=== PATIENT | male | born 1950 | race African-American/Black ===

== ENCOUNTER 2024-07-15 04:52 | Inpatient (IN) | payer MEDICARE ==
[2024-07-15] VITALS (14 sets, daily range): BP systolic 97–112; BP diastolic 56–66; PULSE 90–110; RESP 20–25; TEMP 36.72516–36.7516; O2SAT 97–100
[~2024-07-15] VITALS: Ht 175.3 cm; Wt 75.0 kg
[2024-07-15 05:27] LABS: MEAN CORPUSCULAR HEMOGLOBIN 18.9 pg (28.0-32.0); MEAN CORPUSCULAR HGB CONC 25.9 g/dL (31.0-37.0); MEAN CORPUSCULAR VOLUME 72.8 fL (80.0-94.0); MEAN PLATELET VOLUME 9.7 fl (7.4-10.4); PLATELET 187 x1000/uL (130-400); RED BLOOD CELL COUNT 2.37 mill/uL (4.7-6.1); RED CELL DISTRIBUTION WIDTH 25.1 % (11.6-14.6); WHITE BLOOD COUNT 4.2 x1000/uL (4.5-11.0)
[2024-07-15 05:37] LABS: CHLORIDE 105 mEq/L (98-107); POTASSIUM 4.3 mEq/L (3.5-5.1); SODIUM 142 mEq/L (136-145)
[2024-07-15 05:39] LABS: CALCIUM 9.4 mg/dL (8.7-10.4)
[2024-07-15 05:43] LABS: CREATININE 1.7 mg/dL (0.6-1.3)
[2024-07-15 05:44] LABS: GLUCOSE 60 mg/dL (70-105); UREA NITROGEN BLOOD 27 mg/dL (9-23)
[2024-07-15 05:45] LABS: TROPONIN I HIGH SENSITIVITY 28 ng/L (3.0-53)
[2024-07-15 05:46] LABS: CREATINE KINASE 64 IU/L (46-171); DIFFERENTIAL COMMENT 1; HEMATOCRIT. 17.2 % (42.0-52.0); HEMOGLOBIN. 4.5 g/dL (14.0-18.0)
[2024-07-15 06:33] LABS: CARBON DIOXIDE < 10 mEq/L (21-32)
[2024-07-15 07:24] LABS: NUCLEATED RED BLOOD CELLS 2 /100 WBC; PLATELET ESTIMATE NORMAL
[2024-07-15] MEDS ORDERED: MAGNESIUM/ALUMINUM HYDROXIDE/SIMETHICONE 30ML UDC PO PRN (07:45)
[2024-07-15] MEDS ORDERED: GUAIFENESIN 200MG/10ML SUGAR FREE UDC PO PRN (07:45)
[2024-07-15] MEDS ORDERED: ONDANSETRON HCL 4MG/2ML INJ IV PRN (07:45)
[2024-07-15] MEDS ORDERED: CLONIDINE 0.1MG TABLET PO PRN (07:45)
[2024-07-15] MEDS: FUROSEMIDE 40MG/4ML VIAL IVP ONE (07:59)
[2024-07-15] MEDS: PANTOPRAZOLE SODIUM 40 MG/VIAL IV SCH (08:16)
[2024-07-15 08:30] LABS: IRON 20 ug/dL (65-175)
[2024-07-15 08:32] LABS: TROPONIN I HIGH SENSITIVITY 50 ng/L (3.0-53)
[2024-07-15 08:33] LABS: TOTAL IRON BINDING CAPACITY 343 ug/dl (250-425)
[2024-07-15 08:47] LABS: ALANINE AMINOTRANSFERASE 49 IU/L (10-49); ALBUMIN 3.6 g/dL (3.2-4.8); ASPARTATE AMINOTRANSFERASE 45 IU/L (<34); BILIRUBIN DIRECT 0.8 mg/dL (<=3.0); PHOSPHORUS 6.1 mg/dL (2.5-4.9)
[2024-07-15 08:48] LABS: BILIRUBIN TOTAL 1.5 mg/dL (0.1-1.0); PROTEIN TOTAL 7.1 g/dL (6.0-8.3)
[2024-07-15 08:50] LABS: LACTIC ACID 22.5 mmol/L (0.4-2.0)
[2024-07-15 08:51] LABS: FERRITIN 10 ng/mL (22-322); FOLIC ACID (FOLATE) SERUM > 20.00 ng/mL (>5.38); VITAMIN B12 SERUM 650 pg/mL (211-911)
[2024-07-15] MEDS: MULTIVITAMINS,THER W-MINERALS TABLET PO SCH (09:00)
[2024-07-15] MEDS ORDERED: DOCUSATE SODIUM 100MG CAPSULE PO PRN (09:00)
[2024-07-15] MEDS: SUCRALFATE 1G TABLET PO SCH (09:00)
[2024-07-15] MEDS: THIAMINE HCL 100MG TABLET PO SCH (09:00)
[2024-07-15] MEDS: SODIUM BICARBONATE 8.4% 50MEQ/50ML SYR IV NR ×2 (09:00→16:12)
[2024-07-15] MEDS: SODIUM CHLORIDE 0.9% 1,000 ML IV ONE (09:00)
[2024-07-15] MEDS: VANCOMYCIN 1G PREMIX 200 ML IV SCH (09:00)
[2024-07-15] MEDS: FOLIC ACID 1MG TABLET PO SCH (09:00)
[2024-07-15] MEDS: PIPERACILLIN/TAZO 3.375G/50ML 50 ML IV SCH ×2 (09:00→14:41)
[2024-07-15] MEDS: SODIUM BICARBONATE 8.4% 50MEQ/50ML SYR IV ONE (09:30)
[2024-07-15] MEDS: DEXTROSE 50% WATER 50ML SYRINGE IV PRN (09:56)
[2024-07-15 10:18] LABS: BG BASE EXCESS -22.8 mmol/L (-2.0-3.0); BG CARBOXYHEMOGLOBIN 2.2 % (0.5-1.5); BG DEOXYHEMOGLOBIN 0.3 % (0.0-5.0); BG FRACTION INSPIRED OXYGEN 100; BG METHEMOGLOBIN 0.3 % (0.5-1.5); BG OXYGEN SATURATION 99.7 % (94.0-98.0); BG OXYHEMOGLOBIN 97.2 % (94.0-98.0); BG PCO2 17.1 mmHg (35.0-48.0); BG PH 7.085 (7.350-7.450); BG PO2 275.3 mmHg (83.0-108.0); BG SAMPLE SITE RIGHT BRACHIAL; BG TOTAL HEMOGLOBIN 5.8 g/dL (13.5-17.5); BG VENT MODE MASK - NRB
[2024-07-15] MEDS: LORAZEPAM 2MG/ML INJ IV ONE (10:34)
[2024-07-15 10:35] LABS: INR 1.6; PARTIAL THROMBOPLASTIN TIME 22.9 sec (23.4-31.0); PROTHROMBIN TIME 17.2 sec (9.6-11.0)
[2024-07-15] MEDS: FERROUS SULFATE 325MG TABLET PO SCH (10:45)
[2024-07-15] MEDS: LORAZEPAM 2MG/ML INJ IV NR (11:27)
[2024-07-15] MEDS: SUCCINYLCHOLINE CHLORIDE 200MG/10ML IV ONE (11:59)
[2024-07-15] MEDS: ETOMIDATE 2MG/ML 10ML VIAL IV ONE (11:59)
[2024-07-15] MEDS ORDERED: MIDAZOLAM 100MG/100ML PMX 100 ML IV PRN (12:00)
[2024-07-15] MEDS ORDERED: FENTANYL CITRATE/PF 2,500 MCG in SODIUM CHLORIDE 0.9% 200 ML IV PRN (12:00)
[2024-07-15] MEDS ORDERED: FENTANYL CITRATE 2,500 MCG in SODIUM CHLORIDE 0.9% 200 ML IV PRN (12:15)
[2024-07-15 12:24] LABS: HEMATOCRIT 23.8 % (42.0-52.0)
[2024-07-15] MEDS: MIDAZOLAM 100MG/100ML PREMIX IV PRN (12:37)
[2024-07-15 12:43] LABS: HEMOGLOBIN 6.2 g/dL (14.0-18.0)
[2024-07-15] MEDS: MIDAZOLAM HCL 2 MG/2 ML VIAL IV ONE (12:46)
[2024-07-15] MEDS: MIDAZOLAM HCL 100 MG in DEXT 5% WATER 80 ML IV ONE (12:46)
[2024-07-15 14:19] LABS: BG BASE EXCESS -19.7 mmol/L (-2.0-3.0); BG CARBOXYHEMOGLOBIN 1.8 % (0.5-1.5); BG DEOXYHEMOGLOBIN 0.3 % (0.0-5.0); BG FRACTION INSPIRED OXYGEN 80; BG METHEMOGLOBIN 0.3 % (0.5-1.5); BG OXYGEN SATURATION 99.7 % (94.0-98.0); BG OXYHEMOGLOBIN 97.6 % (94.0-98.0); BG PCO2 25.2 mmHg (35.0-48.0); BG PH 7.118 (7.350-7.450); BG PO2 444.8 mmHg (83.0-108.0); BG SAMPLE SITE RIGHT RADIAL; BG TOTAL HEMOGLOBIN 6.9 g/dL (13.5-17.5); BG VENT MODE VENT - AC
[2024-07-15 16:34] LABS: CLARITY URINE CLEAR (CLEAR); COLOR URINE YELLOW (YELLOW); GLUCOSE URINE NEGATIVE (NEGATIVE); KETONES URINE TRACE (NEGATIVE); LEUKOCYTE ESTERASE URINE NEGATIVE (NEGATIVE); NITRITE URINE NEGATIVE (NEGATIVE); OCCULT BLOOD URINE 3+ (NEGATIVE); PROTEIN URINE 2+ (NEGATIVE)
[2024-07-15 16:37] LABS: HEMATOCRIT 28.2 % (42.0-52.0); HEMOGLOBIN 7.7 g/dL (14.0-18.0)
[2024-07-15 16:42] LABS: POTASSIUM 3.8 mEq/L (3.5-5.1)
[2024-07-15 16:43] LABS: CALCIUM 8.5 mg/dL (8.7-10.4)
[2024-07-15 16:48] LABS: CREATININE 1.9 mg/dL (0.6-1.3)
[2024-07-15 16:50] LABS: *AMPHETAMINES SCREEN URINE NEGATIVE (NEGATIVE); *BARBITURATES SCREEN URINE NEGATIVE (NEGATIVE); *BENZODIAZEPINES SCREEN URINE PRESUMPTIVE POSITIVE (NEGATIVE)
[2024-07-15 16:51] LABS: *COCAINE SCREEN URINE PRESUMPTIVE POSITIVE (NEGATIVE); CANNABINOID URINE SCREEN NEGATIVE (NEGATIVE); ECSTASY MDMA SCREEN URINE NEGATIVE (NEGATIVE); METHADONE URINE SCREEN NEGATIVE (NEGATIVE); OPIATES URINE SCREEN NEGATIVE (NEGATIVE); PHENCYCLIDINE URINE SCREEN NEGATIVE (NEGATIVE)
[2024-07-15 16:56] LABS: BACTERIA URINE TRACE; RBC URINE NONE SEEN /hpf (0-2); SQUAMOUS EPITHELIAL CELL URINE FEW /lpf (RARE/1+); WBC URINE 0-2 /hpf (0-2)
[2024-07-15] MEDS: NOREPINEPHRINE 8MG/250ML PMX 250 ML IV PRN (17:04)
[2024-07-15 17:21] LABS: BG BASE EXCESS -11.2 mmol/L (-2.0-3.0); BG CARBOXYHEMOGLOBIN 1.1 % (0.5-1.5); BG DEOXYHEMOGLOBIN 0.1 % (0.0-5.0); BG FRACTION INSPIRED OXYGEN 60; BG METHEMOGLOBIN 0.1 % (0.5-1.5); BG OXYGEN SATURATION 99.9 % (94.0-98.0); BG OXYHEMOGLOBIN 98.7 % (94.0-98.0); BG PCO2 28.7 mmHg (35.0-48.0); BG PH 7.307 (7.350-7.450); BG PO2 243.7 mmHg (83.0-108.0); BG SAMPLE SITE RIGHT RADIAL; BG TOTAL HEMOGLOBIN 7.2 g/dL (13.5-17.5); BG VENT MODE VENT - AC
[2024-07-15 21:04] LABS: HEMATOCRIT 23.3 % (42.0-52.0); HEMOGLOBIN 7.1 g/dL (14.0-18.0)
[2024-07-15 21:20] LABS: CREATINE KINASE MB FRACTION 18.1 ng/mL (0.5-3.6)
[2024-07-16] VITALS (108 sets, daily range): BP systolic 95–120; BP diastolic 51–72; PULSE 78–98; RESP 18–23; TEMP 36.16956–36.72516; O2SAT 88–100
[2024-07-16] MEDS ORDERED: MIDAZOLAM HCL 5 MG/5 ML VIAL IV PRN (00:15)
[2024-07-16 01:40] LABS: LACTIC ACID 5.9 mmol/L (0.4-2.0)
[2024-07-16 02:03] LABS: HEMOGLOBIN 7.8 g/dL (14.0-18.0)
[2024-07-16] MEDS: DEXT 5%/0.9% NACL 1,000 ML IV SCH (04:12)
[2024-07-16] MEDS: BLOOD SUGAR DIAGNOSTIC STRIP TEST SCH (04:28)
[2024-07-16 06:22] LABS: CHLORIDE 107 mEq/L (98-107); POTASSIUM 3.5 mEq/L (3.5-5.1); SODIUM 144 mEq/L (136-145)
[2024-07-16 06:23] LABS: CALCIUM 7.8 mg/dL (8.7-10.4); CARBON DIOXIDE 30 mEq/L (21-32)
[2024-07-16 06:28] LABS: CREATINE KINASE MB FRACTION 13.5 ng/mL (0.5-3.6); GLUCOSE 143 mg/dL (70-105); LACTIC ACID 2.8 mmol/L (0.4-2.0)
[2024-07-16 06:29] LABS: LDL CHOLESTEROL 44 mg/dL (5-100); TRIGLYCERIDE 47 mg/dL (0-150); UREA NITROGEN BLOOD 33 mg/dL (9-23)
[2024-07-16 06:30] LABS: ALANINE AMINOTRANSFERASE 642 IU/L (10-49); ASPARTATE AMINOTRANSFERASE > 1000 IU/L (<34); CHOLESTEROL 76 mg/dL (<200); CREATINE KINASE 910 IU/L (46-171)
[2024-07-16 06:31] LABS: BILIRUBIN DIRECT 1.4 mg/dL (<=3.0); BILIRUBIN TOTAL 2.7 mg/dL (0.1-1.0); HDL CHOLESTEROL 21 mg/dL (>55)
[2024-07-16 06:33] LABS: T4 FREE 0.96 ng/dL (0.89-1.76); THYROID STIMULATING HORMONE 0.69 uIU/mL (0.55-4.78)
[2024-07-16 06:37] LABS: TROPONIN I HIGH SENSITIVITY 2866 ng/L (3.0-53)
[2024-07-16] MEDS ORDERED: PROPOFOL 10MG/ML 100ML 100 ML IV PRN (08:00)
[2024-07-16 09:27] LABS: MEAN CORPUSCULAR HEMOGLOBIN 22.7 pg (28.0-32.0); MEAN CORPUSCULAR HGB CONC 31.6 g/dL (31.0-37.0); MEAN CORPUSCULAR VOLUME 71.9 fL (80.0-94.0); RED CELL DISTRIBUTION WIDTH 26.5 % (11.6-14.6); WHITE BLOOD COUNT 12.3 x1000/uL (4.5-11.0)
[2024-07-16 09:36] LABS: DIFFERENTIAL COMMENT 1
[2024-07-16 09:37] LABS: HEMOGLOBIN. 7.3 g/dL (14.0-18.0)
[2024-07-16 09:53] LABS: BG BASE EXCESS 3.7 mmol/L (-2.0-3.0); BG DEOXYHEMOGLOBIN 2.1 % (0.0-5.0); BG FRACTION INSPIRED OXYGEN 30; BG HCO3 ACT 26.5 mmol/L (21.0-28.0); BG METHEMOGLOBIN 0.3 % (0.5-1.5); BG OXYGEN SATURATION 97.9 % (94.0-98.0); BG OXYHEMOGLOBIN 96.6 % (94.0-98.0); BG PCO2 32.3 mmHg (35.0-48.0); BG PH 7.532 (7.350-7.450); BG PO2 104.1 mmHg (83.0-108.0); BG SAMPLE SITE RIGHT BRACHIAL; BG TOTAL HEMOGLOBIN 7.8 g/dL (13.5-17.5); BG VENT MODE VENT - AC
[2024-07-16] MEDS ORDERED: POTASSIUM CHLORIDE 40 MEQ in DEXT 5% WATER 230 ML IV ONE (10:00)
[2024-07-16] MEDS: KCL 20MEQ/100ML X 2 FOR TOTAL KCL 40MEQ/200ML IV SCH (11:39)
[2024-07-16 12:17] LABS: PHOSPHORUS 3.3 mg/dL (2.5-4.9)
[2024-07-16] MEDS: IPRATROPIUM/ALBUTEROL 0.5-3(2.5)MG/3ML NEB HHN PRN (12:26)
[2024-07-16 13:08] LABS: TROPONIN I HIGH SENSITIVITY 2341 ng/L (3.0-53)
[2024-07-16 15:48] LABS: HEMOGLOBIN 7.8 g/dL (14.0-18.0)
[2024-07-16 16:02] LABS: ANISOCYTOSIS 4+; MICROCYTOSIS 2+; NUCLEATED RED BLOOD CELLS 1 /100 WBC; TARGET CELLS 1+
[2024-07-16 16:04] LABS: GIANT PLATELETS FEW; MEAN PLATELET VOLUME 10.2 fl (7.4-10.4); PLATELET 90 x1000/uL (130-400); PLATELET ESTIMATE DECREASED
[2024-07-16 19:04] LABS: TROPONIN I HIGH SENSITIVITY 1507 ng/L (3.0-53)
[2024-07-17] VITALS (107 sets, daily range): BP systolic 89–158; BP diastolic 45–111; PULSE 77–97; RESP 15–25; TEMP 36.50292–37.00296; O2SAT 97–100
[2024-07-17 02:08] LABS: CHLORIDE 108 mEq/L (98-107); POTASSIUM 3.3 mEq/L (3.5-5.1); SODIUM 143 mEq/L (136-145)
[2024-07-17 02:09] LABS: CALCIUM 7.6 mg/dL (8.7-10.4); CARBON DIOXIDE 30 mEq/L (21-32)
[2024-07-17 02:14] LABS: CREATININE 1.7 mg/dL (0.6-1.3); GLUCOSE 125 mg/dL (70-105); UREA NITROGEN BLOOD 25 mg/dL (9-23)
[2024-07-17 02:16] LABS: ALANINE AMINOTRANSFERASE 507 IU/L (10-49); ALBUMIN 2.6 g/dL (3.2-4.8); ASPARTATE AMINOTRANSFERASE 403 IU/L (<34); PHOSPHORUS 3.3 mg/dL (2.5-4.9); PROTEIN TOTAL 5.5 g/dL (6.0-8.3)
[2024-07-17 05:15] LABS: BASOPHILS % 0.1 % (0.0-2.0); EOSINOPHILS % 0.1 % (0.0-5.0); HEMATOCRIT. 23.2 % (42.0-52.0); HEMOGLOBIN. 7.3 g/dL (14.0-18.0); MEAN CORPUSCULAR HEMOGLOBIN 23.1 pg (28.0-32.0); MEAN CORPUSCULAR HGB CONC 31.5 g/dL (31.0-37.0); MEAN CORPUSCULAR VOLUME 73.6 fL (80.0-94.0); MONOCYTES % 3.5 % (2.0-8.0); NEUTROPHILS % 88.3 % (40.0-76.0); PLATELET 71 x1000/uL (130-400); RED BLOOD CELL COUNT 3.16 mill/uL (4.7-6.1); RED CELL DISTRIBUTION WIDTH 26.6 % (11.6-14.6); WHITE BLOOD COUNT 10.7 x1000/uL (4.5-11.0)
[2024-07-17] MEDS ORDERED: KCL 10MEQ/50ML PREMIX 50 ML IV PRN (06:15)
[2024-07-17 06:19] LABS: DIFFERENTIAL COMMENT 1
[2024-07-17 08:46] LABS: CHLORIDE 108 mEq/L (98-107); POTASSIUM 3.3 mEq/L (3.5-5.1); SODIUM 144 mEq/L (136-145)
[2024-07-17 08:47] LABS: CARBON DIOXIDE 28 mEq/L (21-32)
[2024-07-17 08:48] LABS: CALCIUM 7.9 mg/dL (8.7-10.4)
[2024-07-17 08:52] LABS: CREATININE 1.5 mg/dL (0.6-1.3); GLUCOSE 136 mg/dL (70-105); TRIGLYCERIDE 57 mg/dL (0-150)
[2024-07-17 08:53] LABS: UREA NITROGEN BLOOD 22 mg/dL (9-23)
[2024-07-17 08:54] LABS: ALANINE AMINOTRANSFERASE 480 IU/L (10-49); ALBUMIN 2.7 g/dL (3.2-4.8); ASPARTATE AMINOTRANSFERASE 309 IU/L (<34)
[2024-07-17 08:55] LABS: PROTEIN TOTAL 5.8 g/dL (6.0-8.3)
[2024-07-17 09:11] LABS: BG CARBOXYHEMOGLOBIN 1.4 % (0.5-1.5); BG FRACTION INSPIRED OXYGEN 30; BG HCO3 ACT 27.3 mmol/L (21.0-28.0); BG METHEMOGLOBIN 0.3 % (0.5-1.5); BG OXYHEMOGLOBIN 96.3 % (94.0-98.0); BG PCO2 35.4 mmHg (35.0-48.0); BG PH 7.505 (7.350-7.450); BG SAMPLE SITE RIGHT BRACHIAL; BG TOTAL HEMOGLOBIN 7.4 g/dL (13.5-17.5); BG VENT MODE VENT - AC
[2024-07-17] MEDS: KCL 10MEQ/50ML PREMIX 50 ML IV PRN (09:47)
[2024-07-17 12:13] LABS: HEMATOCRIT 22.2 % (42.0-52.0)
[2024-07-17 13:35] LABS: PHOSPHORUS 2.6 mg/dL (2.5-4.9)
[2024-07-17 18:39] LABS: HEMATOCRIT 26.1 % (42.0-52.0)
[2024-07-17 19:00] LABS: CREATINE KINASE MB FRACTION 5.5 ng/mL (0.5-3.6)
[2024-07-17] MEDS: ALBUMIN HUMAN 25GM/500ML (5%) IV NR (22:53)
[2024-07-17] MEDS: FUROSEMIDE 20MG/2ML VIAL IVP NR (23:36)
[2024-07-17] MEDS: ACETAZOLAMIDE SODIUM 500MG/VIAL IV NR (23:38)
[2024-07-18] VITALS (111 sets, daily range): BP systolic 73–129; BP diastolic 46–90; PULSE 64–121; RESP 17–34; TEMP 36.16956–37.2252; O2SAT 68–100
[2024-07-18 06:09] LABS: CHLORIDE 112 mEq/L (98-107); POTASSIUM 3.5 mEq/L (3.5-5.1); SODIUM 144 mEq/L (136-145)
[2024-07-18 06:12] LABS: CALCIUM 8.1 mg/dL (8.7-10.4); CARBON DIOXIDE 26 mEq/L (21-32)
[2024-07-18 06:17] LABS: CREATININE 1.3 mg/dL (0.6-1.3); GLUCOSE 106 mg/dL (70-105); UREA NITROGEN BLOOD 15 mg/dL (9-23)
[2024-07-18 06:19] LABS: ALANINE AMINOTRANSFERASE 311 IU/L (10-49); ALBUMIN 2.9 g/dL (3.2-4.8); ASPARTATE AMINOTRANSFERASE 123 IU/L (<34); PHOSPHORUS 1.8 mg/dL (2.5-4.9)
[2024-07-18 06:20] LABS: BILIRUBIN TOTAL 2.7 mg/dL (0.1-1.0); PROTEIN TOTAL 5.8 g/dL (6.0-8.3)
[2024-07-18 06:51] LABS: BASOPHILS % 0.1 % (0.0-2.0); EOSINOPHILS % 0.5 % (0.0-5.0); HEMATOCRIT. 28.7 % (42.0-52.0); HEMOGLOBIN. 8.5 g/dL (14.0-18.0); LYMPHOCYTES % 12.9 % (20.0-50.0); MEAN CORPUSCULAR HEMOGLOBIN 23.1 pg (28.0-32.0); MEAN CORPUSCULAR HGB CONC 29.6 g/dL (31.0-37.0); MEAN CORPUSCULAR VOLUME 78.2 fL (80.0-94.0); MEAN PLATELET VOLUME 10.6 fl (7.4-10.4); MONOCYTES % 4.1 % (2.0-8.0); NEUTROPHILS % 82.4 % (40.0-76.0); PLATELET 68 x1000/uL (130-400); RED BLOOD CELL COUNT 3.67 mill/uL (4.7-6.1); RED CELL DISTRIBUTION WIDTH 26.4 % (11.6-14.6); WHITE BLOOD COUNT 8.3 x1000/uL (4.5-11.0)
[2024-07-18 06:57] LABS: DIFFERENTIAL COMMENT 1
[2024-07-18] MEDS: DEXMEDETOMIDINE 400 MCG/100 ML 100 ML IV PRN (11:09)
[2024-07-18 12:15] LABS: HEMATOCRIT 27.6 % (42.0-52.0); HEMOGLOBIN 8.2 g/dL (14.0-18.0)
[2024-07-18 12:59] LABS: BG BASE EXCESS 1.4 mmol/L (-2.0-3.0); BG CARBOXYHEMOGLOBIN 0.8 % (0.5-1.5); BG DEOXYHEMOGLOBIN 7.7 % (0.0-5.0); BG FRACTION INSPIRED OXYGEN 30; BG HCO3 ACT 24.8 mmol/L (21.0-28.0); BG METHEMOGLOBIN 0.3 % (0.5-1.5); BG OXYGEN SATURATION 92.2 % (94.0-98.0); BG OXYHEMOGLOBIN 91.2 % (94.0-98.0); BG PH 7.481 (7.350-7.450); BG PO2 61.9 mmHg (83.0-108.0); BG SAMPLE SITE RIGHT RADIAL; BG TOTAL HEMOGLOBIN 8.5 g/dL (13.5-17.5); BG VENT MODE VENT - SIMV
[2024-07-18] MEDS: SODIUM PHOSPHATE 30 MMOL in DEXT 5% WATER 490 ML IV ONE (13:19)
[2024-07-18] MEDS: MAGNESIUM 2 G PREMIX 50 ML IV NR (19:01)
[2024-07-19] VITALS (90 sets, daily range): BP systolic 75–129; BP diastolic 45–79; PULSE 63–94; RESP 16–27; TEMP 36.50292–37.00296; O2SAT 92–100
[2024-07-19 05:01] LABS: BASOPHILS % 0.2 % (0.0-2.0); EOSINOPHILS % 0.7 % (0.0-5.0); HEMATOCRIT. 28.5 % (42.0-52.0); HEMOGLOBIN. 8.7 g/dL (14.0-18.0); LYMPHOCYTES % 14.8 % (20.0-50.0); MEAN CORPUSCULAR HEMOGLOBIN 23.5 pg (28.0-32.0); MEAN CORPUSCULAR HGB CONC 30.5 g/dL (31.0-37.0); MEAN CORPUSCULAR VOLUME 77.1 fL (80.0-94.0); MONOCYTES % 6.4 % (2.0-8.0); NEUTROPHILS % 77.9 % (40.0-76.0); RED BLOOD CELL COUNT 3.69 mill/uL (4.7-6.1); RED CELL DISTRIBUTION WIDTH 26.5 % (11.6-14.6); WHITE BLOOD COUNT 5.9 x1000/uL (4.5-11.0)
[2024-07-19 05:05] LABS: CHLORIDE 112 mEq/L (98-107); POTASSIUM 3.5 mEq/L (3.5-5.1); SODIUM 142 mEq/L (136-145)
[2024-07-19 05:09] LABS: CARBON DIOXIDE 24 mEq/L (21-32)
[2024-07-19 05:14] LABS: ALBUMIN 2.8 g/dL (3.2-4.8); CREATININE 1.1 mg/dL (0.6-1.3)
[2024-07-19 05:15] LABS: ALANINE AMINOTRANSFERASE 206 IU/L (10-49); ASPARTATE AMINOTRANSFERASE 64 IU/L (<34); GLUCOSE 188 mg/dL (70-105); UREA NITROGEN BLOOD 14 mg/dL (9-23)
[2024-07-19 05:17] LABS: BILIRUBIN TOTAL 1.9 mg/dL (0.1-1.0); PHOSPHORUS 2.3 mg/dL (2.5-4.9); PROTEIN TOTAL 5.7 g/dL (6.0-8.3)
[2024-07-19 05:39] LABS: HEPATITIS B SURFACE ANTIGEN NEGATIVE (Negative)
[2024-07-19 05:59] LABS: HEPATITIS A AB IGM REACTIVE (Negative)
[2024-07-19 06:00] LABS: HEPATITIS B CORE AB IGM NEGATIVE (Negative); HEPATITIS C AB NON REACTIVE (Neg) (Negative)
[2024-07-19 06:46] LABS: DIFFERENTIAL COMMENT 1
[2024-07-19 07:48] LABS: PLATELET 66 x1000/uL (130-400)
[2024-07-19 08:57] LABS: BG BASE EXCESS -2.5 mmol/L (-2.0-3.0); BG CARBOXYHEMOGLOBIN 0.9 % (0.5-1.5); BG DEOXYHEMOGLOBIN 1.4 % (0.0-5.0); BG FRACTION INSPIRED OXYGEN 30; BG HCO3 ACT 21.2 mmol/L (21.0-28.0); BG METHEMOGLOBIN 0.3 % (0.5-1.5); BG OXYGEN SATURATION 98.6 % (94.0-98.0); BG OXYHEMOGLOBIN 97.4 % (94.0-98.0); BG PCO2 32.5 mmHg (35.0-48.0); BG PH 7.432 (7.350-7.450); BG PO2 112.6 mmHg (83.0-108.0); BG SAMPLE SITE RIGHT RADIAL; BG TOTAL HEMOGLOBIN 9.5 g/dL (13.5-17.5); BG TOTAL RESPIRATORY RATE 26 b/min; BG VENT MODE VENT - SIMV
[2024-07-19] MEDS: LIDOCAINE HCL 1% 10 MG/ML 10ML VIAL ONE (09:15)
[2024-07-19] MEDS: KCL 10MEQ/50ML PREMIX 50 ML IV PRN (09:56)
[2024-07-19 12:51] LABS: HEMATOCRIT 29.2 % (42.0-52.0); HEMOGLOBIN 8.8 g/dL (14.0-18.0)
[2024-07-19 13:06] LABS: BG BASE EXCESS -1.7 mmol/L (-2.0-3.0); BG CARBOXYHEMOGLOBIN 0.9 % (0.5-1.5); BG DEOXYHEMOGLOBIN 3.6 % (0.0-5.0); BG FRACTION INSPIRED OXYGEN 30; BG HCO3 ACT 22.4 mmol/L (21.0-28.0); BG METHEMOGLOBIN 0.3 % (0.5-1.5); BG OXYGEN SATURATION 96.4 % (94.0-98.0); BG OXYHEMOGLOBIN 95.2 % (94.0-98.0); BG PCO2 35.1 mmHg (35.0-48.0); BG PH 7.422 (7.350-7.450); BG PO2 82.7 mmHg (83.0-108.0); BG SAMPLE SITE RIGHT RADIAL; BG TOTAL HEMOGLOBIN 9.4 g/dL (13.5-17.5); BG VENT MODE VENT - CPAP
[2024-07-19] MEDS: POTASSIUM PHOSPHATE 15 MMOL in DEXT 5% WATER 245 ML IV NR (15:01)
[2024-07-19] MEDS: IPRATROPIUM BROMIDE (0.02%) 0.5MG/2.5ML NEB HHN SCH (15:33)
[2024-07-19] MEDS: GLYCOPYRROLATE 0.2 MG/ML 2ML VIAL IV NR (16:47)
[2024-07-20] VITALS (99 sets, daily range): BP systolic 93–137; BP diastolic 48–93; PULSE 80–115; RESP 13–32; TEMP 36.3918–36.89184; O2SAT 99–100
[2024-07-20 06:44] LABS: CARBON DIOXIDE 26 mEq/L (21-32); CHLORIDE 113 mEq/L (98-107); POTASSIUM 3.5 mEq/L (3.5-5.1); SODIUM 142 mEq/L (136-145)
[2024-07-20 06:45] LABS: CALCIUM 7.8 mg/dL (8.7-10.4)
[2024-07-20 06:50] LABS: GLUCOSE 127 mg/dL (70-105); UREA NITROGEN BLOOD 14 mg/dL (9-23)
[2024-07-20 06:51] LABS: ALANINE AMINOTRANSFERASE 129 IU/L (10-49)
[2024-07-20 06:52] LABS: ALBUMIN 2.7 g/dL (3.2-4.8); ASPARTATE AMINOTRANSFERASE 27 IU/L (<34); BILIRUBIN TOTAL 1.7 mg/dL (0.1-1.0); PHOSPHORUS 1.7 mg/dL (2.5-4.9); PROTEIN TOTAL 5.3 g/dL (6.0-8.3)
[2024-07-20] MEDS: ACETYLCYSTEINE 200MG/ML 20% VIAL 4ML INH SCH (08:06)
[2024-07-20] MEDS: KCL 10MEQ/50ML PREMIX 50 ML IV PRN (08:13)
[2024-07-20] MEDS: MIDODRINE HCL 5MG TABLET PO SCH (08:13)
[2024-07-20] MEDS: POTASSIUM PHOSPHATE 30 MMOL in DEXT 5% WATER 490 ML IV SCH (09:12)
[2024-07-20 10:32] LABS: BG BASE EXCESS -2.6 mmol/L (-2.0-3.0); BG CARBOXYHEMOGLOBIN 1.1 % (0.5-1.5); BG DEOXYHEMOGLOBIN 1.3 % (0.0-5.0); BG FRACTION INSPIRED OXYGEN 45; BG HCO3 ACT 20.9 mmol/L (21.0-28.0); BG METHEMOGLOBIN 0.3 % (0.5-1.5); BG OXYGEN SATURATION 98.7 % (94.0-98.0); BG OXYHEMOGLOBIN 97.3 % (94.0-98.0); BG PH 7.447 (7.350-7.450); BG PO2 115.8 mmHg (83.0-108.0); BG SAMPLE SITE RIGHT RADIAL; BG TOTAL HEMOGLOBIN 8.8 g/dL (13.5-17.5); BG VENT MODE HIGH FLOW
[2024-07-20 12:52] LABS: HEMATOCRIT 27.8 % (42.0-52.0); HEMOGLOBIN 8.3 g/dL (14.0-18.0)
[2024-07-21] VITALS (69 sets, daily range): BP systolic 100–144; BP diastolic 49–103; PULSE 80–121; RESP 14–24; TEMP 36.3918–37.2252; O2SAT 97–100
[2024-07-21] MEDS: MIDODRINE HCL 5MG TABLET PO SCH (00:47)
[2024-07-21 05:45] LABS: BASOPHILS % 0.3 % (0.0-2.0); EOSINOPHILS % 0.7 % (0.0-5.0); HEMOGLOBIN. 8.9 g/dL (14.0-18.0); MEAN CORPUSCULAR HEMOGLOBIN 24.2 pg (28.0-32.0); MEAN CORPUSCULAR HGB CONC 30.7 g/dL (31.0-37.0); MEAN CORPUSCULAR VOLUME 78.8 fL (80.0-94.0); MONOCYTES % 6.3 % (2.0-8.0); NEUTROPHILS % 80.7 % (40.0-76.0); RED BLOOD CELL COUNT 3.68 mill/uL (4.7-6.1); RED CELL DISTRIBUTION WIDTH 27.3 % (11.6-14.6); WHITE BLOOD COUNT 6.6 x1000/uL (4.5-11.0)
[2024-07-21 05:56] LABS: CHLORIDE 113 mEq/L (98-107); POTASSIUM 4.1 mEq/L (3.5-5.1); SODIUM 141 mEq/L (136-145)
[2024-07-21 05:57] LABS: CARBON DIOXIDE 22 mEq/L (21-32)
[2024-07-21 05:58] LABS: CALCIUM 7.9 mg/dL (8.7-10.4)
[2024-07-21 06:03] LABS: CREATININE 0.9 mg/dL (0.6-1.3); GLUCOSE 172 mg/dL (70-105); UREA NITROGEN BLOOD 12 mg/dL (9-23)
[2024-07-21 06:04] LABS: ALANINE AMINOTRANSFERASE 108 IU/L (10-49); ALBUMIN 2.7 g/dL (3.2-4.8); ASPARTATE AMINOTRANSFERASE 26 IU/L (<34)
[2024-07-21 06:05] LABS: BILIRUBIN TOTAL 1.2 mg/dL (0.1-1.0); PROTEIN TOTAL 5.7 g/dL (6.0-8.3)
[2024-07-21 06:48] LABS: DIFFERENTIAL COMMENT 1
[2024-07-21 07:41] LABS: MEAN PLATELET VOLUME 10.9 fl (7.4-10.4); PLATELET 68 x1000/uL (130-400)
[2024-07-21] MEDS: PIPERACILLIN/TAZO 3.375G/50ML 50 ML IV SCH (13:33)
[2024-07-22] VITALS (11 sets, daily range): BP systolic 109–146; BP diastolic 61–86; PULSE 60–110; RESP 16–22; TEMP 36.44736–37.05852; O2SAT 96–100
[2024-07-22 07:30] LABS: CHLORIDE 112 mEq/L (98-107); POTASSIUM 3.9 mEq/L (3.5-5.1); SODIUM 141 mEq/L (136-145)
[2024-07-22 07:31] LABS: CALCIUM 8.1 mg/dL (8.7-10.4); CARBON DIOXIDE 25 mEq/L (21-32)
[2024-07-22 07:36] LABS: CREATININE 0.8 mg/dL (0.6-1.3); GLUCOSE 168 mg/dL (70-105); UREA NITROGEN BLOOD 11 mg/dL (9-23)
[2024-07-22 07:38] LABS: ALANINE AMINOTRANSFERASE 75 IU/L (10-49); ALBUMIN 2.6 g/dL (3.2-4.8); AMMONIA 19 uMol/L (<32); ASPARTATE AMINOTRANSFERASE 19 IU/L (<34); BILIRUBIN TOTAL 1.3 mg/dL (0.1-1.0); PROTEIN TOTAL 5.6 g/dL (6.0-8.3)
[2024-07-22 07:46] LABS: BASOPHILS % 0.2 % (0.0-2.0); EOSINOPHILS % 1.1 % (0.0-5.0); HEMOGLOBIN. 9.1 g/dL (14.0-18.0); LYMPHOCYTES % 10.9 % (20.0-50.0); MEAN CORPUSCULAR HEMOGLOBIN 23.6 pg (28.0-32.0); MEAN CORPUSCULAR HGB CONC 30.3 g/dL (31.0-37.0); MEAN CORPUSCULAR VOLUME 77.8 fL (80.0-94.0); MEAN PLATELET VOLUME 9.6 fl (7.4-10.4); MONOCYTES % 8.3 % (2.0-8.0); NEUTROPHILS % 79.5 % (40.0-76.0); PLATELET 98 x1000/uL (130-400); RED BLOOD CELL COUNT 3.85 mill/uL (4.7-6.1); RED CELL DISTRIBUTION WIDTH 27.3 % (11.6-14.6); WHITE BLOOD COUNT 6.2 x1000/uL (4.5-11.0)
[2024-07-22 08:22] LABS: DIFFERENTIAL COMMENT 1
[2024-07-22 09:55] LABS: PHOSPHORUS 1.7 mg/dL (2.5-4.9)
[2024-07-22] MEDS: MIDODRINE HCL 5MG TABLET PO SCH (15:01)
[2024-07-22] MEDS: FAMOTIDINE 20MG TABLET PO SCH (22:11)
[2024-07-23] VITALS (13 sets, daily range): BP systolic 105–157; BP diastolic 52–108; PULSE 95–120; RESP 13–24; TEMP 36.44736–37.11408; O2SAT 97–100
[2024-07-23] MEDS: POTASSIUM PHOSPHATE 30 MMOL in SODIUM CHLORIDE 0.9% 490 ML IV ONE (09:18)
[2024-07-23] MEDS: METOPROLOL SUCCINATE 50MG ER TABLET PO SCH (09:45)
[2024-07-23] MEDS ORDERED: MAGNESIUM HYDROXIDE 400MG/5ML 30ML UDC PO PRN (11:15)
[2024-07-23] MEDS: POLYETHYLENE GLYCOL 3350 (17GM) 1 DOSE PACK PO SCH (21:00)
[2024-07-24] VITALS (11 sets, daily range): BP systolic 112–155; BP diastolic 75–125; PULSE 106–118; RESP 16–24; TEMP 36.22512–36.55848; O2SAT 98–100
[2024-07-24] MEDS: LOSARTAN 25 MG TABLET PO SCH (09:10)
[2024-07-24] MEDS: FUROSEMIDE 40MG/4ML VIAL IVP SCH (10:30)
[2024-07-24] MEDS: METOPROLOL TARTRATE 25MG TABLET PO SCH (11:41)
[2024-07-24] MEDS ORDERED: LOSARTAN 25 MG TABLET PO SCH (13:00)
[2024-07-24] MEDS: LORAZEPAM 2MG/ML INJ IV NR (21:30)
[2024-07-25] VITALS: BP 122/65; PULSE 95; RESP 16; TEMP 36.55848
[2024-07-25 04:00] VITALS: BP 142/49; PULSE 103; RESP 17; TEMP 36.72516
[2024-07-25] MEDS ORDERED: FUROSEMIDE 20MG/2ML VIAL IVP SCH (09:00)
[2024-07-25 10:48] LABS: HEMOGLOBIN 9.3 g/dL (14.0-18.0); MEAN CORPUSCULAR HEMOGLOBIN 23.9 pg (28.0-32.0); MEAN CORPUSCULAR HGB CONC 30.1 g/dL (31.0-37.0); MEAN CORPUSCULAR VOLUME 79.4 fL (80.0-94.0); PLATELET 198 x1000/uL (130-400); RED CELL DISTRIBUTION WIDTH 27.5 % (11.6-14.6); WHITE BLOOD COUNT 6.7 x1000/uL (4.5-11.0)
[2024-07-25 10:50] LABS: CARBON DIOXIDE 27 mEq/L (21-32); CHLORIDE 112 mEq/L (98-107); POTASSIUM 3.4 mEq/L (3.5-5.1); SODIUM 144 mEq/L (136-145)
[2024-07-25 10:52] LABS: CALCIUM 8.5 mg/dL (8.7-10.4)
[2024-07-25 10:55] LABS: CREATININE 0.7 mg/dL (0.6-1.3)
[2024-07-25 10:56] LABS: GLUCOSE 136 mg/dL (70-105); UREA NITROGEN BLOOD 10 mg/dL (9-23)
[2024-07-25 10:58] LABS: PHOSPHORUS 2.3 mg/dL (2.5-4.9)
[2024-07-25 11:38] VITALS: BP 110/60; PULSE 102; RESP 22; TEMP 36.22512; O2SAT 98
[2024-07-25 15:43] VITALS: BP 100/67; PULSE 105; RESP 22; TEMP 36.6696; O2SAT 96
[2024-07-25 20:00] VITALS: BP 115/61; PULSE 113; RESP 22; TEMP 36.28068; O2SAT 96
[2024-07-25] MEDS ORDERED: MAGNESIUM 2 G PREMIX 50 ML IV NR (23:30)
[2024-07-26] VITALS: BP 125/70; PULSE 111; RESP 21; TEMP 36.50292; O2SAT 94
[2024-07-26] MEDS ORDERED: NON FORMULARY MED XX ONE (01:15)
[2024-07-26] MEDS: MELATONIN 3MG TABLET PO NR (01:28)
[2024-07-26] MEDS: MAGNESIUM 2 G PREMIX 50 ML IV NR (02:30)
[2024-07-26] MEDS: MAGNESIUM GLUCONATE 500MG TABLET PO SCH (02:54)
[2024-07-26 04:00] VITALS: BP 124/68; PULSE 99; RESP 22; TEMP 36.3918; O2SAT 96
[2024-07-26 08:00] VITALS: BP 138/76; PULSE 86; RESP 18; TEMP 37.00296; O2SAT 99
[2024-07-26] MEDS: HYDROXYZINE 25MG TABLET PO PRN (09:55)
[2024-07-26] MEDS: FUROSEMIDE 40MG/4ML VIAL IV SCH (15:30)
[2024-07-26] MEDS ORDERED: IPRATROPIUM/ALBUTEROL 0.5-3(2.5)MG/3ML NEB HHN PRN (15:30)
[2024-07-26 16:00] VITALS: BP 138/74; PULSE 95; RESP 20; TEMP 36.6696; O2SAT 100
[2024-07-26 16:44] VITALS: BP 138/75; PULSE 95; TEMP 98.8; O2SAT 100
[2024-07-26] MEDS ORDERED: IPRATROPIUM/ALBUTEROL 0.5-3(2.5)MG/3ML NEB HHN SCH (18:00)
[2024-07-26 20:00] VITALS: BP 149/88; PULSE 101; RESP 18; TEMP 36.78072; O2SAT 99
[2024-07-26 22:02] LABS: CHLORIDE 109 mEq/L (98-107); POTASSIUM 3.7 mEq/L (3.5-5.1); SODIUM 142 mEq/L (136-145)
[2024-07-26 22:03] LABS: BASOPHILS % 0.6 % (0.0-2.0); CALCIUM 8.5 mg/dL (8.7-10.4); CARBON DIOXIDE 27 mEq/L (21-32); EOSINOPHILS % 0.9 % (0.0-5.0); HEMATOCRIT. 29.6 % (42.0-52.0); LYMPHOCYTES % 15.9 % (20.0-50.0); MEAN CORPUSCULAR HEMOGLOBIN 24.5 pg (28.0-32.0); MEAN CORPUSCULAR HGB CONC 30.5 g/dL (31.0-37.0); MEAN CORPUSCULAR VOLUME 80.6 fL (80.0-94.0); MEAN PLATELET VOLUME 9.1 fl (7.4-10.4); MONOCYTES % 5.5 % (2.0-8.0); NEUTROPHILS % 77.1 % (40.0-76.0); PLATELET 249 x1000/uL (130-400); RED BLOOD CELL COUNT 3.68 mill/uL (4.7-6.1); RED CELL DISTRIBUTION WIDTH 29.1 % (11.6-14.6); WHITE BLOOD COUNT 6.6 x1000/uL (4.5-11.0)
[2024-07-26 22:06] LABS: ADD RBC MORPHOLOGY YES; DIFFERENTIAL COMMENT 1
[2024-07-26 22:08] LABS: CREATININE 0.8 mg/dL (0.6-1.3); GLUCOSE 109 mg/dL (70-105); UREA NITROGEN BLOOD 12 mg/dL (9-23)
[2024-07-26 22:10] LABS: AMMONIA < 17 uMol/L (<32)
[2024-07-26 22:11] LABS: PHOSPHORUS 2.5 mg/dL (2.5-4.9)
[2024-07-26 22:38] LABS: HYPOCHROMASIA 1+; PLATELET ESTIMATE NORMAL
[2024-07-26 22:39] LABS: ANISOCYTOSIS 2+; OVALOCYTES 1+
== END 2024-07-26 23:23 | DRG 870 ==
LOC: ER 04:52 → EDBEDREQ 07:41 → EDBEDREQSVC 11:50 → EDBEDREQTM 11:50 → MICUSO 22:07 → 5EST 07-21 16:10 → 7WST 07-25 02:30 → 6WST 07-26 11:00
PROVIDERS: ADMIT Internal Medicine; ATTEND Internal Medicine
PROC: 5A1955Z Respiratory Ventilation, Greater than 96 Consecutive Hours (ICD-10-PCS; principal; 2024-07-15)
PROC: 0BH18EZ Insertion of Endotracheal Airway into Trachea, Via Natural or Artificial Opening Endoscopic (ICD-10-PCS; 2024-07-15)
PROC: 30233N1 Transfusion of Nonautologous Red Blood Cells into Peripheral Vein, Percutaneous Approach (ICD-10-PCS; 2024-07-15)
PROC: 06HP33Z Insertion of Infusion Device into Right Saphenous Vein, Percutaneous Approach (ICD-10-PCS; 2024-07-15)
PROC: 5A0945A Assistance with Respiratory Ventilation, 24-96 Consecutive Hours, High Flow/Velocity Cannula (ICD-10-PCS; 2024-07-19)
PROC: 02HV33Z Insertion of Infusion Device into Superior Vena Cava, Percutaneous Approach (ICD-10-PCS; 2024-07-19)
PROC: B548ZZA Ultrasonography of Superior Vena Cava, Guidance (ICD-10-PCS; 2024-07-19)
PROC: 5A1935Z Respiratory Ventilation, Less than 24 Consecutive Hours (ICD-10-PCS; 2024-07-21)
DX: A41.9 Sepsis, unspecified organism (principal); G92.8 Other toxic encephalopathy; I21.A1 Myocardial infarction type 2; J96.01 Acute respiratory failure with hypoxia; K72.00 Acute and subacute hepatic failure without coma; R65.21 Severe sepsis with septic shock; I50.43 Acute on chronic combined systolic (congestive) and diastolic (congestive) heart failure; J69.0 Pneumonitis due to inhalation of food and vomit; J15.69 Pneumonia due to other Gram-negative bacteria; E87.20 Acidosis, unspecified; K92.2 Gastrointestinal hemorrhage, unspecified; I42.9 Cardiomyopathy, unspecified; I38 Endocarditis, valve unspecified; I13.0 Hypertensive heart and chronic kidney disease with heart failure and stage 1 through stage 4 chronic kidney disease, or unspecified chronic kidney disease; Z59.02 Unsheltered homelessness; B15.9 Hepatitis A without hepatic coma; N17.9 Acute kidney failure, unspecified; Z20.822 Contact with and (suspected) exposure to COVID-19; D50.9 Iron deficiency anemia, unspecified; E87.6 Hypokalemia; I73.9 Peripheral vascular disease, unspecified; R62.7 Adult failure to thrive; S81.012A Laceration without foreign body, left knee, initial encounter; S81.011A Laceration without foreign body, right knee, initial encounter; S01.81XA Laceration without foreign body of other part of head, initial encounter; E86.1 Hypovolemia; N18.9 Chronic kidney disease, unspecified; I25.10 Atherosclerotic heart disease of native coronary artery without angina pectoris; E16.2 Hypoglycemia, unspecified; F17.200 Nicotine dependence, unspecified, uncomplicated; Z74.01 Bed confinement status; Z79.899 Other long term (current) drug therapy; X58.XXXA Exposure to other specified factors, initial encounter; Y93.89 Activity, other specified; Y92.89 Other specified places as the place of occurrence of the external cause; Y99.8 Other external cause status
CPT/HCPCS: 36415; 36573; 36600; 71045; 74176; 76604; 76700; 80048; 80053; 80061; 80076; 80305; 80320; 81003; 82140; 82248; 82375; 82550; 82553; 82607; 82728; 82746; 82805; 82962; 83036; 83540; 83550; 83605; 83735; 83880; 84100; 84145; 84439; 84443; 84478; 84484; 85014; 85018; 85025; 85027; 85044; 85379; 86705; 86709; 86850; 86900; 86920; 87340; 87426; 92610; 93005; 93306; 93970; 94003; 94640; 97161; 97166; 99291; C1725; J1120; J1940; J2060; J2250; J2470; J2543; J3010; J3370; J3475; J3480; J3490; J7030; J7040; J7042; J7050; J7060; J7608; P9016; P9041; Q9957; G0480